=== PATIENT | female | born 1990 | race Caucasian/White ===

== ENCOUNTER 2016-09-08 11:04 | Outpatient (CLI) | payer OTHER, MEDICAID ==
[2015-10-20 22:31] VITALS: BP 116/62
[2016-09-08 11:16] LABS: BASOPHILS % 0.8 (0.0-1.5); MEAN CORPUSCULAR HEMOGLOBIN 30.9 pg (28.0-34.0); MEAN CORPUSCULAR VOLUME 90.8 fl (80.0-100.0); MONOCYTES % 3.9 % (0.0-11.0); NEUTROPHILS # 4.8 # k/uL (1.4-7.7)
== END 2016-09-08 11:05 ==
LOC: LAB 11:04
PROVIDERS: ATTEND Family Medicine
DX: R53.83 Other fatigue (principal)
CPT/HCPCS: 36415; 85025